=== PATIENT | female | born 1990 | race Caucasian/White ===

== ENCOUNTER 2021-10-15 16:23 | Emergency (ER) | payer MEDICAID ==
[~2021-10-15] VITALS: Ht 152.4 cm; Wt 61.0 kg
[2021-10-15] MEDS ORDERED: LABETALOL HCL VIAL 20 MG/4 ML VIAL IV ONE ×2 (16:45→20:15)
[2021-10-15 17:20] LABS: CHLORIDE 107 mEq/L (98-107)
[2021-10-15 17:24] LABS: BASOPHILS % 0.4 % (0.0-2.0); EOSINOPHILS % 0.8 % (0.0-5.0); HEMATOCRIT. 37.1 % (36.0-48.0); HEMOGLOBIN. 12.5 g/dL (12.0-16.0); LYMPHOCYTES % 11.6 % (20.0-50.0); MEAN CORPUSCULAR HEMOGLOBIN 27.6 pg (28.0-32.0); MEAN CORPUSCULAR VOLUME 81.7 fL (81.0-99.0); MEAN PLATELET VOLUME 8.9 fl (7.4-10.4); MONOCYTES % 3.9 % (2.0-8.0); NEUTROPHILS % 83.3 % (40.0-76.0); PLATELET 345 x1000/uL (130-400); RED BLOOD CELL COUNT 4.54 mill/uL (4.2-5.4); RED CELL DISTRIBUTION WIDTH 15.9 % (11.6-14.6)
[2021-10-15 17:43] LABS: B-HCG QUANTITATIVE 61169 mIU/mL (<3)
[2021-10-15] MEDS ORDERED: LABETALOL 5MG/ML SYR 20 MG/4 ML SYRINGE IV NR (18:00)
[2021-10-15 18:11] LABS: CLARITY URINE CLOUDY (CLEAR); COLOR URINE ORANGE (YELLOW); KETONES URINE NEGATIVE (NEGATIVE); LEUKOCYTE ESTERASE URINE TRACE (NEGATIVE); NITRITE URINE NEGATIVE (NEGATIVE); OCCULT BLOOD URINE 3+ (NEGATIVE); PROTEIN URINE 3+ (NEGATIVE); UROBILINOGEN URINE 0.2 E.U./dL (0.2-1.0)
[2021-10-15] MEDS ORDERED: CEPH500C2 MT (21:14)
[2021-10-15] MEDS ORDERED: HYDR-4133 MT (21:14)
[2021-10-15 21:39] VITALS: BP 158/93
[2021-10-16 11:32] LABS: *AMPHETAMINES SCREEN URINE NEGATIVE (NEGATIVE); *BARBITURATES SCREEN URINE NEGATIVE (NEGATIVE); *BENZODIAZEPINES SCREEN URINE NEGATIVE (NEGATIVE); *COCAINE SCREEN URINE NEGATIVE (NEGATIVE); CANNABINOID URINE SCREEN NEGATIVE (NEGATIVE); METHADONE URINE SCREEN NEGATIVE (NEGATIVE); OPIATES URINE SCREEN NEGATIVE (NEGATIVE); PHENCYCLIDINE URINE SCREEN NEGATIVE (NEGATIVE)
== END 2021-10-15 21:40 | disposition home or self-care (01) ==
LOC: ER 16:23
DX: O23.41 Unspecified infection of urinary tract in pregnancy, first trimester (principal); N39.0 Urinary tract infection, site not specified; O16.1 Unspecified maternal hypertension, first trimester; O20.9 Hemorrhage in early pregnancy, unspecified; Z3A.08 8 weeks gestation of pregnancy; Z98.890 Other specified postprocedural states; Z20.822 Contact with and (suspected) exposure to COVID-19
CPT/HCPCS: 36415; 76801; 76817; 80053; 80305; 81003; 84702; 85025; 86900; 86901; 87426; 93005; 96374; 96376; 99285; J3490

== ENCOUNTER 2021-12-02 20:38 | Inpatient (IN) | payer MEDICAID ==
[~2021-12-02] VITALS: Ht 152.4 cm; Wt 61.2 kg
[~2021-12-02 20:38] MED LIST: CEPH500C2 MT; HYDR-4133 MT
[2021-12-02] MEDS ORDERED: SODIUM CHLORIDE 0.9% 1,000 ML IV ONE (21:15)
[2021-12-02] MEDS ORDERED: LABETALOL HCL VIAL 20 MG/4 ML VIAL IV ONE (21:15)
[2021-12-02 21:28] LABS: BASOPHILS % 0.4 % (0.0-2.0); EOSINOPHILS % 0.2 % (0.0-5.0); HEMATOCRIT. 35.6 % (36.0-48.0); HEMOGLOBIN. 12.2 g/dL (12.0-16.0); LYMPHOCYTES % 7.1 % (20.0-50.0); MEAN CORPUSCULAR HEMOGLOBIN 28.5 pg (28.0-32.0); MEAN CORPUSCULAR VOLUME 83.1 fL (81.0-99.0); MEAN PLATELET VOLUME 8.3 fl (7.4-10.4); NEUTROPHILS % 88.3 % (40.0-76.0); PLATELET 268 x1000/uL (130-400); RED BLOOD CELL COUNT 4.28 mill/uL (4.2-5.4)
[2021-12-02 21:30] LABS: CLARITY URINE CLEAR (CLEAR); COLOR URINE YELLOW (YELLOW); KETONES URINE NEGATIVE (NEGATIVE); LEUKOCYTE ESTERASE URINE NEGATIVE (NEGATIVE); NITRITE URINE NEGATIVE (NEGATIVE); OCCULT BLOOD URINE 1+ (NEGATIVE); PROTEIN URINE 3+ (NEGATIVE); SPECIFIC GRAVITY URINE 1.004 (1.005-1.030); UROBILINOGEN URINE 0.2 E.U./dL (0.2-1.0)
[2021-12-02] MEDS ORDERED: LABETALOL 5MG/ML SYR 20 MG/4 ML SYRINGE IV NR (21:35)
[2021-12-02 21:37] LABS: CHLORIDE 106 mEq/L (98-107)
[2021-12-02] MEDS ORDERED: ACETAMINOPHEN 650MG/20.3ML UDC PO ONE (23:30)
[2021-12-02] MEDS ORDERED: LABETALOL 5MG/ML SYR 20 MG/4 ML SYRINGE IV ONE (23:45)
[2021-12-03] VITALS (38 sets, daily range): BP systolic 113–167; BP diastolic 24–116
[2021-12-03] MEDS ORDERED: CEFTRIAXONE 1 G PREMIX 50 ML IV ONE (00:45)
[2021-12-03] MEDS ORDERED: LABETALOL 5MG/ML SYR 20 MG/4 ML SYRINGE IV NR (05:00)
[2021-12-03] MEDS ORDERED: ACETAMINOPHEN 325MG TABLET PO PRN (10:00)
[2021-12-03] MEDS ORDERED: IPRATROPIUM/ALBUTEROL 0.5-3(2.5)MG/3ML NEB HHN PRN (10:00)
[2021-12-03] MEDS: LABETALOL HCL 100 MG in DEXT 5% WATER 80 ML IV PRN ×3 (10:49→14:38)
[2021-12-03 11:55] LABS: BASOPHILS % 0.4 % (0.0-2.0); EOSINOPHILS % 0.3 % (0.0-5.0); HEMATOCRIT. 34.8 % (36.0-48.0); HEMOGLOBIN. 12.3 g/dL (12.0-16.0); LYMPHOCYTES % 10.1 % (20.0-50.0); MEAN CORPUSCULAR HEMOGLOBIN 29.4 pg (28.0-32.0); MEAN CORPUSCULAR VOLUME 83.3 fL (81.0-99.0); MEAN PLATELET VOLUME 8.2 fl (7.4-10.4); MONOCYTES % 3.7 % (2.0-8.0); NEUTROPHILS % 85.5 % (40.0-76.0); PLATELET 257 x1000/uL (130-400); RED BLOOD CELL COUNT 4.18 mill/uL (4.2-5.4); RED CELL DISTRIBUTION WIDTH 17.3 % (11.6-14.6)
[2021-12-03] MEDS ORDERED: PNV1TABL50 MT (13:44)
[2021-12-03] MEDS: CEFEPIME 1,000 MG in DEXTROSE 5% WATER 50 ML IV SCH (14:10)
[2021-12-03] MEDS: HYDRALAZINE HCL 50MG TABLET PO SCH ×2 (14:10→22:13)
[2021-12-03] MEDS: PRENATAL VIT/FE FUMARATE/FA TABLET PO SCH (14:15)
[2021-12-03] MEDS: ACETAMINOPHEN 325MG TABLET PO PRN (14:16)
[2021-12-04] VITALS (78 sets, daily range): BP systolic 108–177; BP diastolic 55–114
[2021-12-04] MEDS: CEFEPIME 1,000 MG in DEXTROSE 5% WATER 50 ML IV SCH ×3 (00:16→23:36)
[2021-12-04] MEDS: ACETAMINOPHEN 325MG TABLET PO PRN ×2 (01:05→14:08)
[2021-12-04] MEDS: ONDANSETRON HCL 4MG/2ML INJ IV PRN ×2 (01:20→16:44)
[2021-12-04] MEDS: LABETALOL HCL 100 MG in DEXT 5% WATER 80 ML IV PRN ×2 (02:14→19:05)
[2021-12-04 05:32] LABS: BASOPHILS % 0.2 % (0.0-2.0); EOSINOPHILS % 0.2 % (0.0-5.0); HEMATOCRIT. 35.2 % (36.0-48.0); HEMOGLOBIN. 11.8 g/dL (12.0-16.0); LYMPHOCYTES % 7.8 % (20.0-50.0); MEAN CORPUSCULAR HEMOGLOBIN 28.5 pg (28.0-32.0); MEAN CORPUSCULAR VOLUME 84.4 fL (81.0-99.0); MEAN PLATELET VOLUME 8.6 fl (7.4-10.4); MONOCYTES % 2.9 % (2.0-8.0); NEUTROPHILS % 88.9 % (40.0-76.0); PLATELET 277 x1000/uL (130-400); RED BLOOD CELL COUNT 4.16 mill/uL (4.2-5.4); RED CELL DISTRIBUTION WIDTH 17.7 % (11.6-14.6)
[2021-12-04] MEDS: HYDRALAZINE HCL 50MG TABLET PO SCH (06:18)
[2021-12-04] MEDS ORDERED: LABETALOL HCL 100 MG in DEXT 5% WATER 80 ML IV PRN (08:19)
[2021-12-04] MEDS: DOCUSATE SODIUM 100MG CAPSULE PO PRN ×2 (08:47→22:22)
[2021-12-04] MEDS: PRENATAL VIT/FE FUMARATE/FA TABLET PO SCH (08:47)
[2021-12-04] MEDS: HYDRALAZINE HCL 25MG TABLET PO SCH ×2 (14:08→22:23)
[2021-12-05] VITALS (94 sets, daily range): BP systolic 85–172; BP diastolic 54–114
[2021-12-05] MEDS: LABETALOL HCL 100 MG in DEXT 5% WATER 80 ML IV PRN ×5 (02:05→23:31)
[2021-12-05 06:09] LABS: BASOPHILS % 0.3 % (0.0-2.0); EOSINOPHILS % 1.1 % (0.0-5.0); HEMATOCRIT. 34.7 % (36.0-48.0); HEMOGLOBIN. 12.1 g/dL (12.0-16.0); LYMPHOCYTES % 14.7 % (20.0-50.0); MEAN CORPUSCULAR HEMOGLOBIN 29.4 pg (28.0-32.0); MEAN CORPUSCULAR VOLUME 84.6 fL (81.0-99.0); MEAN PLATELET VOLUME 8.8 fl (7.4-10.4); MONOCYTES % 4.9 % (2.0-8.0); PLATELET 293 x1000/uL (130-400); RED CELL DISTRIBUTION WIDTH 17.7 % (11.6-14.6)
[2021-12-05] MEDS: HYDRALAZINE HCL 25MG TABLET PO SCH (06:13)
[2021-12-05] MEDS: ONDANSETRON HCL 4MG/2ML INJ IV PRN ×2 (08:04→18:04)
[2021-12-05] MEDS: PRENATAL VIT/FE FUMARATE/FA TABLET PO SCH (08:06)
[2021-12-05] MEDS ORDERED: HYDRALAZINE HCL 25MG TABLET PO SCH (10:15)
[2021-12-05] MEDS: CEFEPIME 1,000 MG in DEXTROSE 5% WATER 50 ML IV SCH ×2 (11:02→23:28)
[2021-12-05] MEDS: HYDRALAZINE HCL 50MG TABLET PO SCH ×2 (14:22→22:28)
[2021-12-06] VITALS (68 sets, daily range): BP systolic 117–179; BP diastolic 60–122
[2021-12-06 05:23] LABS: BASOPHILS % 0.3 % (0.0-2.0); EOSINOPHILS % 1.1 % (0.0-5.0); HEMATOCRIT. 35.6 % (36.0-48.0); HEMOGLOBIN. 12.3 g/dL (12.0-16.0); LYMPHOCYTES % 17.7 % (20.0-50.0); MEAN CORPUSCULAR HEMOGLOBIN 29.3 pg (28.0-32.0); MEAN CORPUSCULAR VOLUME 84.6 fL (81.0-99.0); MEAN PLATELET VOLUME 8.7 fl (7.4-10.4); NEUTROPHILS % 75.9 % (40.0-76.0); PLATELET 302 x1000/uL (130-400)
[2021-12-06 05:43] LABS: PHOSPHORUS 3.8 mg/dL (2.5-4.9)
[2021-12-06] MEDS: HYDRALAZINE HCL 50MG TABLET PO SCH (06:32)
[2021-12-06] MEDS: PRENATAL VIT/FE FUMARATE/FA TABLET PO SCH (07:58)
[2021-12-06] MEDS ORDERED: NIFEDIPINE XL 30MG TAB PO SCH ×2 (09:15→21:00)
[2021-12-06 13:07] LABS: ANTI-CARDIOLIPIN AB IGA < 9 APL U/mL (0-11); ANTI-CARDIOLIPIN AB IGG < 9 GPL U/mL (0-14); ANTI-CARDIOLIPIN AB IGM < 9 MPL U/mL (0-12)
[2021-12-06] MEDS: HYDRALAZINE HCL 100MG TABLET PO SCH ×2 (13:33→22:39)
[2021-12-06] MEDS: ONDANSETRON HCL 4MG/2ML INJ IV PRN (17:43)
[2021-12-06] MEDS: NIFEDIPINE XL 30MG TAB PO SCH (18:22)
[2021-12-07] VITALS (17 sets, daily range): BP systolic 105–164; BP diastolic 63–113
[2021-12-07 06:05] LABS: BASOPHILS % 0.3 % (0.0-2.0); EOSINOPHILS % 0.6 % (0.0-5.0); HEMATOCRIT. 36.8 % (36.0-48.0); HEMOGLOBIN. 12.8 g/dL (12.0-16.0); LYMPHOCYTES % 16.8 % (20.0-50.0); MEAN CORPUSCULAR HEMOGLOBIN 29.2 pg (28.0-32.0); MEAN PLATELET VOLUME 8.6 fl (7.4-10.4); MONOCYTES % 5.3 % (2.0-8.0); PLATELET 289 x1000/uL (130-400); RED BLOOD CELL COUNT 4.38 mill/uL (4.2-5.4); RED CELL DISTRIBUTION WIDTH 17.5 % (11.6-14.6)
[2021-12-07] MEDS: NIFEDIPINE XL 30MG TAB PO SCH (06:17)
[2021-12-07] MEDS: HYDRALAZINE HCL 100MG TABLET PO SCH (06:17)
[2021-12-07 06:55] LABS: CHLORIDE 104 mEq/L (98-107)
[2021-12-07 07:01] LABS: PHOSPHORUS 3.8 mg/dL (2.5-4.9)
[2021-12-07] MEDS ORDERED: NIFE90TA60 MT (08:15)
[2021-12-07] MEDS ORDERED: HYDR100T26 PO (08:15)
[2021-12-08 14:12] LABS: ANTI-DNA DOUBLE STRANDED QUANT 3 IU/mL (0-9)
[2021-12-09 04:09] LABS: B-2 GLYCOPROTEIN IGA < 9 (0-25); B-2 GLYCOPROTEIN IGG < 9 (0-20)
[2021-12-09 17:06] LABS: ANA IFA Positive (.)
== END 2021-12-07 08:49 | disposition home or self-care (01) | DRG 566 ==
LOC: ER 20:38 → MICUSO 12-03 02:40 → ENRESERV 12-03 11:55 → MICUSO 12-03 12:34
PROVIDERS: ADMIT Internal Medicine; ATTEND Internal Medicine
DX: O13.2 Gestational [pregnancy-induced] hypertension without significant proteinuria, second trimester (principal); I31.3 Pericardial effusion (noninflammatory); O22.22 Superficial thrombophlebitis in pregnancy, second trimester; O23.42 Unspecified infection of urinary tract in pregnancy, second trimester; I80.9 Phlebitis and thrombophlebitis of unspecified site; O26.612 Liver and biliary tract disorders in pregnancy, second trimester; I16.1 Hypertensive emergency; O99.612 Diseases of the digestive system complicating pregnancy, second trimester; O34.82 Maternal care for other abnormalities of pelvic organs, second trimester; O34.592 Maternal care for other abnormalities of gravid uterus, second trimester; O26.832 Pregnancy related renal disease, second trimester; I12.9 Hypertensive chronic kidney disease with stage 1 through stage 4 chronic kidney disease, or unspecified chronic kidney disease; R80.9 Proteinuria, unspecified; R79.89 Other specified abnormal findings of blood chemistry; Z20.822 Contact with and (suspected) exposure to COVID-19; R77.8 Other specified abnormalities of plasma proteins; N39.0 Urinary tract infection, site not specified; N83.519 Torsion of ovary and ovarian pedicle, unspecified side; N83.202 Unspecified ovarian cyst, left side; N83.201 Unspecified ovarian cyst, right side; N18.30 Chronic kidney disease, stage 3 unspecified; Z3A.15 15 weeks gestation of pregnancy; Z79.899 Other long term (current) drug therapy; Z82.3 Family history of stroke; Z82.49 Family history of ischemic heart disease and other diseases of the circulatory system; Z37.0 Single live birth
CPT/HCPCS: 36415; 71045; 74181; 76700; 76805; 80048; 80053; 81003; 82570; 83036; 83605; 83615; 83735; 83880; 84100; 84156; 84484; 85025; 86146; 86147; 86160; 86225; 86256; 87426; 93005; 93306; 93970; 99291; J0692; J0696; J2405; J3490; J7030; J7060